=== PATIENT | male | born 1960 | race Two or more races ===

== ENCOUNTER 2025-07-14 08:38 | Emergency (ER) | payer OTHER ==
[~2025-07-14] VITALS: Ht 175.3 cm; Wt 65.8 kg
[2025-07-14] MEDS ORDERED: NORVASC2.5 M1 PO (08:55)
[2025-07-14] MEDS ORDERED: ZESTRIL2.5 MG (08:55)
== END 2025-07-14 10:01 | disposition home or self-care (01) ==
LOC: ER 08:38
DX: Z48.02 Encounter for removal of sutures (principal)